=== PATIENT | male | born 1950 | race Caucasian/White ===

== ENCOUNTER 2019-02-27 10:19 | Day surgery (SDC) | payer OTHER ==
[2019-02-21 10:53] VITALS: BMI 23.8
[2019-02-27] MEDS ORDERED: LIDOCAINE HCL/PF 2% SDV 5ML VIAL ONE (12:09)
[2019-02-27] MEDS ORDERED: PROPOFOL 20 ML ONE (12:09)
[2019-02-27 13:13] VITALS: TEMP 98.8
[2019-02-27 14:13] VITALS: BP 132/46; PULSE 62
--- NOTE | 2019-03-04 13:30 | PATH ---
Surgical Pathology Report Patient Name: KALEB HILL [facility]. Rec. #: [id number] /Age/Gender: 1950 (Age: 68) / M Account: [id number] Location: [facility] Taken: 02/27/2019 Received: 02/27/2019 Reported: 03/04/2019 Physicians: Светлана Salinas M.D. Specimen(s) Received BX GASTRIC ANTRUM Clinical History GI bleed Postoperative diagnosis: Erosive gastritis Final Diagnosis GASTRIC ANTRUM, BIOPSY: MILD CHRONIC GASTRITIS. IMMUNOSTAIN IS NEGATIVE FOR H. PYLORI ORGANISMS. Electronically Signed Shanna Huddleston M.D. Gross Description Received in formalin, labeled "biopsy gastric antrum" is a mcqueen, irregular portion of soft tissue measuring 0.5 cm. in greatest dimension. The specimen is submitted in toto in one cassette. /02/28/2019 [facility]02/28/2019
== END 2019-02-27 14:00 | disposition home or self-care (01) ==
LOC: FASU-ENDO 10:19
PROVIDERS: ATTEND Internal Medicine Gastroenterology
PROC: 0DB68ZX Excision of Stomach, Via Natural or Artificial Opening Endoscopic, Diagnostic (ICD-10-PCS; principal; 2019-02-27 12:23)
DX: K29.50 Unspecified chronic gastritis without bleeding (principal); R19.5 Other fecal abnormalities
CPT/HCPCS: 82962; 88305-TC; 88342-TC

== ENCOUNTER 2019-04-17 11:13 | Day surgery (SDC) | payer OTHER | END 2019-04-17 13:59 | LOC: FASU 11:13 ==